=== PATIENT | female | born 1975 | race Caucasian/White ===

== ENCOUNTER 2022-05-27 01:22 | Emergency (ER) | payer BC, SELFPAY ==
[2022-05-27 01:25] VITALS: BP 115/73; PULSE 79; RESP 16; TEMP 36.7; O2SAT 100; BMI 26.5
--- NOTE | 2022-05-27 01:38 | CRLHL7_ITS ---
For Patients: As a result of the Century Cures Act, medical imaging exams and procedure reports are released immediately into your electronic medical record. You may view this report before your referring provider. If you have questions, please contact your health care provider. INDICATION: Fall on outstretched hand with elbow pain TECHNIQUE: Elbow radiograph 3 views left COMPARISON: None FINDINGS: Bone: On the frontal view, there is a lucency seen over the radial head and the head-neck junction that is suspicious for a nondisplaced intra-articular fracture. Joint: The elbow joint is unremarkable. No significant displacement of the anterior or posterior fat pads noted to suggest an effusion. Soft tissue: Unremarkable. No radiopaque foreign bodies are seen. IMPRESSION: 1. On the frontal view, there is a lucency seen over the radial head and the head-neck junction that is suspicious for a nondisplaced intra-articular fracture. Correlation with physical exam for focal tenderness in this region is recommended. Dictated by Duane Cohn MD @ 05/27/2022 1:52:01 AM Dictated by: Duane Cohn MD @ 05/27/2022 01:52:04 (Electronically Signed)
[2022-05-27] MEDS: IBUPROFEN 400 MG TABLET 800 MG PO (01:58)
--- NOTE | 2022-05-27 04:47 | ED_ITS ---
HPI - Extremity Injury (Upper) General Chief Complaint: Extremity Pain/Injury, Upper Stated Complaint: Left Arm Injury Time Seen by Provider: 05/27/22 01:34 History of Present Illness HPI narrative: 47-year-old woman presenting to the emergency department with complaint left elbow pain following a FOOSH type injury while trying to remove her boots. This is not a slip and fall event. She had had a couple of drinks tonight. Presents here with her . No other injuries were sustained. She just had immediate intense pain of the left elbow as she demonstrates with her right how she fell. Related Data Home Medications Medication Instructions Recorded Confirmed bupropion HCl 150 mg 24 hr tablet, mg PO 05/27/22 extended release bupropion HCl 300 mg 24 hr tablet, mg PO 05/27/22 extended release escitalopram oxalate 10 mg tablet mg 05/27/22 furosemide 20 mg tablet mg 05/27/22 levothyroxine 150 mcg tablet mcg 05/27/22 nabumetone 750 mg tablet mg 05/27/22 pantoprazole 40 mg tablet,delayed mg PO 05/27/22 release Allergies Allergy/AdvReac Type Severity Reaction Status Date / Time coconut Allergy tongue Verified 05/27/22 01:29 puffy Review of Systems Status of ROS: Reports: 6 or more systems reviewed and unremarkable except as noted in History and below PFSH PFS Social History Smoking Status: Never smoker How often do you have a drink containing alcohol: 4 or more times a week How many standard drinks containing alcohol do you have on a typical day: 1 or 2 AUDIT-C Alcohol total score: 4 Non-prescribed substance use: denies use Exam Narrative: Exam Narrative: This pleasant. NAD. Left arm though bent at the elbow and resting in front of her on a pillow. Breathing easily. Cardiovascular with regular rate and rhythm Head looks to be atraumatic. Skin is warm and dry. It in good pulses peripherally with intact sensation. Is sore to palpation generally about the elbow. No discrete area of tenderness. Most pain seems to be elicited with pronation and supination of the forearm. No apparent pain to isolated movement of the shoulder. No injury apparent to the wrist. Const: Vital Signs, click to edit/add: Vital Signs - 24 hr 05/27/22 01:25 Temperature 98.0 F Pulse Rate [Left P ulse Oximeter] 79 Respiratory Rate 16 Blood Pressure [Ri ght Upper Arm] 115/73 Pulse Oximetry 100 Oxygen Delivery Me thod Room Air Documenting provider has reviewed patient's vital signs: yes Course Vital Signs Vital signs: Initial Vital Signs Temperature 98.0 F 05/27/22 01:25 Temperature Source Temporal Artery Scan 05/27/22 01:25 Pulse Rate 79 05/27/22 01:25 Respiratory Rate 16 05/27/22 01:25 Blood Pressure 115/73 05/27/22 01:25 Blood Pressure Mean 87 05/27/22 01:25 Blood Pressure Position Sitting 05/27/22 01:25 Pulse Oximetry 100 05/27/22 01:25 Oxygen Delivery Method 05/27/22 01:25 Vital Signs Temperature 98.0 F 05/27/22 01:25 Pulse Rate 79 05/27/22 01:25 Respiratory Rate 16 05/27/22 01:25 Blood Pressure 115/73 05/27/22 01:25 Pulse Oximetry 100 05/27/22 01:25 Oxygen Delivery Method 05/27/22 01:25 Temperature 98.0 F 05/27/22 01:25 Pulse Rate 79 05/27/22 01:25 Respiratory Rate 16 05/27/22 01:25 Blood Pressure 115/73 05/27/22 01:25 Pulse Oximetry 100 05/27/22 01:25 Oxygen Delivery Method 05/27/22 01:25 MDM - Extremity Injury (Upper) MDM Narrative Medical decision making narrative: I would have concerns of elbow fracture due to degree of discomfort demonstrated with movement; and specifically the radial head given the pronation and supination pain. Ordered for x-rays. By my read I do not see much in the way of a posterior anterior fat pad/cell sign. On a lateral view there is the appearance of a bit of a chip off of the olecranon of undetermined significance but on the radial head on AP view a small lucency. This seems consistent on exam. She did not want anything further for pain given the alcohol but also that opiates and a maker will nauseated. Was given 800 mg of ibuprofen. Placed in an arm sling. Discharge Plan Discharge Clinical Impression: Closed fracture of radial head Patient Disposition: Home w/ Parent or Adult Condition: Stable Additional Instructions: I would ice 2-3 times daily over the next few days. Wear the arm sling when up and about. Might also wear loosely at night maybe with a pillow propping the arm just so you don't cause yourself more pain and wake up. Follow-up sometime this next week with your primary or perhaps with Dr. Zambrano is you said or with Orthopedics phone #[phone]. See handout on radial head fracture of the elbow. This might be useful going forward. I would take it to your follow-up appointment. Prescriptions: No Action nabumetone 750 mg tablet Label Comments: TAKE 1 TABLET BY MOUTH TWICE A DAY WITH MEALS pantoprazole 40 mg tablet,delayed release (DR/EC) PO Label Comments: TAKE 1 TABLET BY MOUTH ONCE DAILY. TAKE 30-60 MINUTES BEFORE A MEAL/FOOD ONCE A DAY. levothyroxine 150 mcg tablet Label Comments: TAKE 1 TABLET (150 MCG) BY MOUTH BEFORE BREAKFAST. furosemide 20 mg tablet Label Comments: TAKE 1 TABLET (20 MG) BY MOUTH ONCE DAILY IF NEEDED (EDEMA). escitalopram oxalate 10 mg tablet Label Comments: TAKE 1 TABLET BY MOUTH EVERY MORNING bupropion HCl 300 mg tablet extended release 24 hr PO Label Comments: TAKE 1 TABLET (300 MG) BY MOUTH EVERY MORNING. TAKE IN ADDITION TO 150MG TABLET bupropion HCl 150 mg tablet extended release 24 hr PO Label Comments: TAKE 1 TABLET (150 MG) BY MOUTH EVERY MORNING. TAKE IN ADDITION TO THE 300MG TABLET. Stand Alone Forms: [employer] Info Instructions
== END 2022-05-27 02:20 | disposition home or self-care (01) ==
PROVIDERS: Emergency Provider Family Medicine; PCP Family Medicine
DX: S52.125A Nondisplaced fracture of head of left radius, initial encounter for closed fracture (principal); W18.30XA Fall on same level, unspecified, initial encounter
CPT/HCPCS: 73080; 99283; A9270

== ENCOUNTER 2022-08-28 07:30 | Outpatient (RCR) | payer BC, SELFPAY | END 2022-12-27 23:59 | disposition home or self-care (01) | PROVIDERS: PCP Family Medicine; Visit Provider Family Medicine | DX: S63.639A Sprain of interphalangeal joint of unspecified finger, initial encounter (principal); Z51.89 Encounter for other specified aftercare | CPT/HCPCS: 97035; 97110; 97140; L3933; X5282 ==

== ENCOUNTER 2023-05-20 09:56 | Outpatient (CLI) | payer BC, SELFPAY ==
--- NOTE | 2023-05-20 11:10 | W.ANESCHARGE ---
Anesthesia Charges Start Date/Time Anesthesia Start Date: 05/20/23 Anesthesia Start Time: 10:27 Stop Date/Time Anesthesia Stop Date: 05/20/23 Anesthesia Stop Time: 11:08
--- NOTE | 2023-05-20 11:54 | W.ANESCHARGE ---
Anesthesia Charges Start Date/Time Anesthesia Start Date: 05/20/23 Anesthesia Start Time: 10:27 Stop Date/Time Anesthesia Stop Date: 05/20/23 Anesthesia Stop Time: 11:08
--- NOTE | 2023-05-20 11:55 | W.ANESCHARGE ---
Anesthesia Charges Start Date/Time Anesthesia Start Date: 05/20/23 Anesthesia Start Time: 10:27 Stop Date/Time Anesthesia Stop Date: 05/20/23 Anesthesia Stop Time: 11:08
== END 2023-05-20 09:57 | disposition home or self-care (01) ==
LOC: OP CLINIC 09:56
PROVIDERS: PCP Family Medicine; Visit Provider Internal Medicine Gastroenterology
DX: Z12.11 Encounter for screening for malignant neoplasm of colon (principal); D12.0 Benign neoplasm of cecum; K21.9 Gastro-esophageal reflux disease without esophagitis; R10.13 Epigastric pain
CPT/HCPCS: 00811; 00813; 43239; 45385; 88305; J2405; J2704